=== PATIENT | male | born 1965 | race Caucasian/White ===

== ENCOUNTER 2025-06-20 16:28 | Emergency (ER) | payer BC ==
[2025-06-20] MEDS ORDERED: Aspirin Chewable 81 MG TAB ONE (17:10)
[2025-06-20] MEDS ORDERED: Acetaminophen 500 MG TAB ONE (17:10)
[2025-06-20 17:19] LABS: Hematocrit 30.5 % (42.0-52.0); Hemoglobin 10.7 g/dL (14.0-18.0); Mean Corpuscular Hemoglobin 35.9 pg (27.0-31.0); Mean Corpuscular Volume 102.3 fL (78.0-98.0); Platelet Count 43 10x3/uL (130-400); Red Blood Cell (RBC) Count 2.98 mill/uL (4.70-6.10); White Blood Cell (WBC) Count 2.18 10x3/uL (4.8-10.8)
[2025-06-20 17:34] LABS: ALT (SGPT) 62 U/L (Less than 45); AST (SGOT) 132 U/L (11-34); Albumin 3.1 g/dL (3.1-4.5); Alkaline Phosphatase 110 U/L (40-110); Anion Gap 16 mmol/L (10-20); BUN (Urea Nitrogen) 11 mg/dL (8.4-25.7); Bilirubin, Total 2.6 mg/dL (0.3-1.2); Calc. Creatinine Clearance 0 mL/min (70-130); Calcium 8.7 mg/dL (7.8-10.44); Carbon Dioxide 23 mmol/L (22-29); Chloride 98 mmol/L (98-107); Globulin 3.9 g/dL (2.4-3.5); Glucose 143 mg/dL (70-105); Potassium 4.3 mmol/L (3.5-5.1); Sodium 133 mmol/L (136-145)
[2025-06-20 17:38] LABS: Troponin I Less than 0.010 ng/mL (< 0.028)
[2025-06-20 17:42] LABS: Anisocytosis SLIGHT = 6-15 cells HPF (0-5); Macrocytosis SLIGHT = 6-15 cells HPF (0-5); Nucleated RBC (Manual Ct) 1 % (0); Platelet Adequacy Comment Platelets Decreased; Poikilocytosis SLIGHT = 6-15 cells HPF (0-5); Polychromasia SLIGHT = 2-3 cells HPF (0-2)
[2025-06-20 19:16] LABS: Bacteria/HPF None Seen HPF (None Seen); CAUTI Indications for Culture Pelvic or flank pain; Glucose, Urine (Dipstick) Greater than 1000 mg/dL (Negative); Leukocyte Negative Leu/uL (Negative); Protein, Urine (Dipstick) Negative (Neg-Trace); RBC/HPF 0-3 HPF (0-3); Specific Gravity, Urine 1.027 (1.002-1.036); WBC/HPF 0-3 HPF (0-3)
[2025-06-20 19:18] LABS: Urine Culture Reflex No No
[2025-06-20 19:56] LABS: Troponin I Less than 0.010 ng/mL (< 0.028)
== END 2025-06-20 20:13 | disposition home or self-care (01) ==
LOC: ERS 16:28
DX: U07.1 COVID-19 (principal); R07.89 Other chest pain; R00.0 Tachycardia, unspecified; I10 Essential (primary) hypertension; Z55.6 Problems related to health literacy
CPT/HCPCS: 36415; 36416; 71045; 80053; 81001; 83880; 84484; 85025; 87428; 93005